=== PATIENT | female | born 2000 | race African-American/Black ===

== ENCOUNTER 2023-11-22 03:23 | Emergency (ER) | payer OTHER ==
[~2023-11-22] VITALS: Ht 172.7 cm; Wt 63.5 kg
[2023-11-22 03:38] VITALS: BP 118/68; PULSE 85; RESP 14; TEMP 97.5; O2SAT 100
[2023-11-22] MEDS ORDERED: SODIUM CHLORIDE 0.9% 1,000 ML IV ONE (03:45)
[2023-11-22 03:59] LABS: BASOPHILS % 0.7 % (0.0-2.0); EOSINOPHILS % 2.5 % (0.0-5.0); HEMATOCRIT. 35.7 % (36.0-48.0); HEMOGLOBIN. 11.8 g/dL (12.0-16.0); LYMPHOCYTES % 30.2 % (20.0-50.0); MEAN CORPUSCULAR HEMOGLOBIN 28.3 pg (28.0-32.0); MEAN CORPUSCULAR HGB CONC 32.9 g/dL (31.0-37.0); MEAN PLATELET VOLUME 11.1 fl (7.4-10.4); MONOCYTES % 8.7 % (2.0-8.0); NEUTROPHILS % 57.9 % (40.0-76.0); PLATELET 257 x1000/uL (130-400); RED BLOOD CELL COUNT 4.16 mill/uL (4.2-5.4); RED CELL DISTRIBUTION WIDTH 14.4 % (11.6-14.6); WHITE BLOOD COUNT 7.5 x1000/uL (4.5-11.0)
[2023-11-22 04:17] LABS: CHLORIDE 105 mEq/L (98-107); POTASSIUM 3.6 mEq/L (3.5-5.1); SODIUM 141 mEq/L (136-145)
[2023-11-22 04:18] LABS: CALCIUM 9.6 mg/dL (8.7-10.4); CARBON DIOXIDE 29 mEq/L (21-32)
[2023-11-22 04:23] LABS: CREATININE 0.8 mg/dL (0.6-1.0); GLUCOSE 106 mg/dL (70-105); UREA NITROGEN BLOOD 9 mg/dL (9-23)
[2023-11-22 04:38] LABS: HCG SCREEN NEGATIVE
== END 2023-11-22 06:31 | disposition left against medical advice (07) ==
LOC: ER 03:37
DX: R55 Syncope and collapse (principal); R53.1 Weakness
CPT/HCPCS: 99283; 80048; 84703; 85025; 36415; J7030